=== PATIENT | female | born 1980 | race Caucasian/White ===

== ENCOUNTER → 2024-11-07 | Outpatient (CLI) | payer OTHER ==
[~2024-11-07] MED LIST: ALBUTEROL0.63 MG/3 INH; AMBIEN5 MG PO; AMOXICILLIN500 MG PO; ASMANEX220 MCG INH; ATIVAN1 MG PO; AUGMENTIN 875 M1 TAB PO; BIAXIN500 MG PO; BISAC-EVAC10 MG R; CLARITIN10 MG PO; CLINDAMYCIN HC300 MG PO; COLACE100 MG PO; COMBIVENT1 ARO; COMBIVENT1 ARO IH; CYCLOBENZAPRINE5 MG PO; DARVOCET N 1001 TAB PO; DAYPRO600 M1 PO; DIFLUCAN150 MG PO; INDERAL LA60 M1 PO; LASIX40 MG PO; LOESTRIN FE 1.51 TAB PO; MEDROL DOSEPAK4 MG PO; METFORMIN500 MG PO; MOTRIN 600 MG E4 TAB PO; MOTRIN600 MG PO; MOTRIN800 MG PO; MYLICON, MYLANT80 MG PO; Motrin,Rufen800 MG PO; NYSTATIN100000 U/M PO; PERCOCET 325 MG1 TA5 PO; PROAIR HFA0.09 MG/AC IH; TOPAMAX100 MG PO; TOPAMAX25 M1 PO; ULTRAM50 MG PO; VENTOLIN H0.09 MG/AC INH; VICODIN 5/500 505 MG PO; VICODIN ES 7501 TA1 PO; ZANTAC 150150 MG PO; ZITHROMAX Z PA250 MG PO
== END | disposition home or self-care (01) ==
LOC: MAMMO 10-25 10:30
PROVIDERS: ATTEND Nurse Practitioner Family
DX: Z12.31 Encounter for screening mammogram for malignant neoplasm of breast (principal); R92.323 Mammographic fibroglandular density, bilateral breasts